=== PATIENT | female | born 1940 | race Caucasian/White ===

== ENCOUNTER → 2020-12-03 | Outpatient (CLI) | payer BC, MEDICARE ==
[~2020-12-03] MED LIST: ATOR80TA59 PO; ECOT81TA5 PO; FLUTISP NARES; LEVO100T5 PO; METO50TA7 PO; PANT40TA29 PO; TORS20TA2 PO
== END ==
LOC: M LABSMTC 08:12
PROVIDERS: ATTEND Anesthesiology
DX: Z01.812 Encounter for preprocedural laboratory examination (principal); Z20.822 Contact with and (suspected) exposure to COVID-19

== ENCOUNTER 2020-12-08 12:16 | Day surgery (SDC) | payer MEDICARE ==
[~2020-12-08] VITALS: Ht 160 cm; Wt 76.7 kg
[~2020-12-08 12:16] MED LIST changes: +NS 1,000 ML IV ONE
[2020-12-08] MEDS ORDERED: AMPICILLIN SOD 2 GM in D5W MINI-BAG PLUS 100 ML IV ONE (13:00)
[2020-12-08] MEDS ORDERED: GENTAMICIN 80 MG in IV 1 EA IV ONE (13:00)
[2020-12-08] MEDS ORDERED: fentaNYL 100 MCG/2 ML INJECTION (J3010) As Ordered ONE (14:01)
[2020-12-08] MEDS ORDERED: propofoL 200 MG/20 ML VIAL As Ordered ONE (14:01)
--- NOTE | 2020-12-08 14:42 | ROOR ---
Patient Name: Deana Thomas Procedure Date: 12/08/2020 2:10 PM Date of : 1940 Age: 79 Room: [facility] Gender: Female Note Status: Finalized Procedure: Upper GI endoscopy Indications: Surveillance for malignancy due to personal history of Duodenal/Ampullary adenoma. s/p ampullectomy 09/2009 Providers: De Farr MD Referring MD: Ellie Boles MD Requesting Provider: Medicines: Monitored Anesthesia Care Complications: No immediate complications. Procedure: Pre-Anesthesia Assessment: - The heart rate, respiratory rate, oxygen saturations, blood pressure, adequacy of pulmonary ventilation, and response to care were monitored throughout the procedure. The Endoscope was introduced through the mouth, and advanced to the second part of duodenum. The upper GI endoscopy was accomplished without difficulty. The patient tolerated the procedure well. Findings: Prominent, but not necessarily abnormal papilla. This was biopsied with a cold forceps for histology. The exam was otherwise without abnormality. Impression: - Prominent, but not necessarily abnormal duodenal papilla. -Biopsied for r/o recurrence of adenoma - The examination was otherwise normal. Recommendation: - Telephone endoscopist for pathology results in 2 weeks. Procedure Code(s): --- Professional --- 32709, Esophagogastroduodenoscopy, flexible, transoral; with biopsy, single or multiple Diagnosis Code(s): --- Professional --- Z86.018, Personal history of other benign neoplasm CPT copyright 2019 [employer]. All rights reserved. The codes documented in this report are preliminary and upon environmental management specialist review may be revised to meet current compliance requirements. De Farr MD De Farr MD 12/08/2020 2:41:45 PM Electronically signed by De Farr MD Number of Addenda: 0 Note Initiated On: 12/08/2020 2:10 PM Estimated Blood Loss: Estimated blood loss: none.
[2020-12-08 15:00] VITALS: BP 118/60
== END 2020-12-08 15:02 | disposition home or self-care (01) ==
LOC: M OPP 12:16
PROVIDERS: ATTEND Internal Medicine Gastroenterology
DX: Z86.018 Personal history of other benign neoplasm (principal); Z09 Encounter for follow-up examination after completed treatment for conditions other than malignant neoplasm; Z79.82 Long term (current) use of aspirin; Z79.899 Other long term (current) drug therapy; Z88.7 Allergy status to serum and vaccine; Z91.040 Latex allergy status; Z95.5 Presence of coronary angioplasty implant and graft; Z87.891 Personal history of nicotine dependence
CPT/HCPCS: 43239; 88305; J0290; J1580; J3010